=== PATIENT | female | born 1945 | race Caucasian/White ===

== ENCOUNTER 2022-04-11 10:56 | Emergency (ER) | payer MEDICARE, OTHER ==
[2022-04-11] MEDS ORDERED: Nirmatrelvir/Ritonavir 300 MG/100 MG Dose Pack PO SCH (21:00)
== END 2022-04-11 11:50 | disposition home or self-care (01) ==
LOC: VM.ED 10:56
DX: U07.1 COVID-19 (principal)
CPT/HCPCS: 99283

== ENCOUNTER 2022-09-05 12:20 | Day surgery (SDC) | payer MEDICARE, OTHER ==
[~2022-09-05 12:20] MED LIST: Lactated Ringers 1,000 ML IV SCH; Propofol 200 MG/20 ML SDV ONE; fentaNYL 100 MCG/2 ML SDV ONE
== END 2022-09-05 15:48 | disposition home or self-care (01) ==
LOC: VM.SDS 12:20
PROVIDERS: ATTEND Family Medicine
DX: Z12.11 Encounter for screening for malignant neoplasm of colon (principal); K57.30 Diverticulosis of large intestine without perforation or abscess without bleeding; E78.5 Hyperlipidemia, unspecified; K21.9 Gastro-esophageal reflux disease without esophagitis; E66.9 Obesity, unspecified; R32 Unspecified urinary incontinence; M17.9 Osteoarthritis of knee, unspecified; G47.33 Obstructive sleep apnea (adult) (pediatric); Z85.42 Personal history of malignant neoplasm of other parts of uterus; Z86.010 Personal history of colon polyps; Z68.31 Body mass index [BMI] 31.0-31.9, adult; Z79.899 Other long term (current) drug therapy
CPT/HCPCS: 00811; G0105; J2704; J3010; J7120

== ENCOUNTER 2025-03-20 14:56 | Emergency (ER) | payer MEDICARE, OTHER ==
[2025-03-20 17:21] LABS: BASOPHILS ABSOLUTE AUTO 0.0 x10^3/uL (0.0-0.2); BASOPHILS PERCENT AUTO 0.6 % (0.2-1.2); EOSINOPHILS ABSOLUTE AUTO 0.3 x10^3/uL (0.0-0.5); EOSINOPHILS PERCENT AUTO 3.9 % (0.0-4.0); IMMATURE GRAN ABSOLUTE AUTO 0.01 x10^3/uL (0.00-0.07); IMMATURE GRAN PERCENT AUTO 0.20 % (0.00-0.43); LYMPHOCYTES ABSOLUTE AUTO 1.7 x10^3/uL (1.0-4.8); LYMPHOCYTES PERCENT AUTO 24.8 % (25.0-50.0); MONOCYTES ABSOLUTE AUTO 0.7 x10^3/uL (0.0-0.8); MONOCYTES PERCENT AUTO 9.9 % (2.0-11.0); NEUTROPHILS ABSOLUTE AUTO 4.0 x10^3/uL (1.8-7.7); NEUTROPHILS PERCENT AUTO 60.6 % (50.0-80.0); PLATELET COUNT,PLT 270 x10^3/uL (130-400); RED BLOOD CELL COUNT 3.89 x10^6/uL (4.00-5.50); WHITE BLOOD CELL COUNT,WBC 6.7 x10^3/uL (4.0-10.0)
[2025-03-20 17:35] LABS: BLOOD UREA NITROGEN,BUN 20 mg/dL (7-18); CARBON DIOXIDE,CO2 27 mmol/L (21-32); CHLORIDE,CL 106 mmol/L (98-107); CREATININE 0.8 mg/dL (0.55-1.02); GLUCOSE RANDOM 107 mg/dL (70-99); POTASSIUM,K 4.0 mmol/L (3.5-5.1); SODIUM,NA 141 mmol/L (136-145)
[2025-03-20 17:36] LABS: ESTIMATED GFR 75 mL/min (>=60)
[2025-03-20] MEDS: Iopamidol 755 Mg/ML 100 ML Bottle IVPUSH ONE (19:12)
== END 2025-03-20 21:17 | disposition home or self-care (01) ==
LOC: VM.ED 14:56
DX: S02.2XXA Fracture of nasal bones, initial encounter for closed fracture (principal); E78.00 Pure hypercholesterolemia, unspecified; E66.9 Obesity, unspecified; Z90.710 Acquired absence of both cervix and uterus; W01.0XXA Fall on same level from slipping, tripping and stumbling without subsequent striking against object, initial encounter
CPT/HCPCS: 36415; 70160; 70450; 70498; 72125; 80048; 85025; 99284; A9270; Q9967